=== PATIENT | female | born 1980 | race Caucasian/White ===

== ENCOUNTER → 2020-10-16 | Outpatient (CLI) | payer OTHER ==
[~2020-10-16] MED LIST: ALBIPROI INH; ALBU90OI; ALBU90OI INH; ALBU90OI6 INH; Anaspaz0.125 MG; Colace100 MG; DIPH50 PO; ERGO400 PO; FLUSAL2505 INH; HYDGUAL120 PO; IBUP800; IBUP800 PO; LEVFLO500 PO; MONT10T PO; MULVITMIND PO; Multi-Day Vita1 EACH PO; Omeprazole20 M1 PO; PRED20 PO; PROM25 PO; Percocet 5-3251 EACH PO; Phentermine HCl15 MG PO; Prilosec Otc20 MG; STOOL SOFTENER50 MG PO; VICODIN 5-3001 EACH PO; Veetids 500500 MG PO; Ventolin Soln3 ML INH
== END ==
LOC: LAB SHORT 13:11 → LAB 13:11
DX: N39.0 Urinary tract infection, site not specified (principal)
CPT/HCPCS: 87077; 87086; 87186

== ENCOUNTER → 2023-10-20 | Outpatient (CLI) | payer OTHER ==
[2023-10-20 10:13] LABS: Stool Occult Bld Immuno 1 Negative (NEGATIVE)
[2023-10-22 03:28] LABS: CALPROTECTIN,FECAL 268 ug/g (<=49)
== END ==
LOC: LAB SHORT 08:20 → LAB 08:20
PROVIDERS: Family Medicine
DX: R10.9 Unspecified abdominal pain (principal)
CPT/HCPCS: 83993; 87338; G0328

== ENCOUNTER 2024-01-14 07:50 | Day surgery (SDC) | payer OTHER ==
[~2024-01-14] VITALS: Ht 167.6 cm; Wt 104.0 kg
[~2024-01-14 07:50] MED LIST changes: +Lactated Ringer's 1,000 ML IV ONE; +propofoL 50 ML IV ONE
[2024-01-14] MEDS ORDERED: SYMBICORT 80-10.2 GM (08:31)
[2024-01-14] MEDS ORDERED: Lactated Ringer's 1,000 ML IV ONE (09:01)
[2024-01-14] MEDS ORDERED: propofoL 50 ML IV ONE (09:29)
[2024-01-14 10:39] VITALS: BP 105/63
== END 2024-01-14 10:32 | disposition home or self-care (01) ==
LOC: ORSCSDS 07:50
PROVIDERS: Internal Medicine Gastroenterology
PROC: 0DBE8ZX Excision of Large Intestine, Via Natural or Artificial Opening Endoscopic, Diagnostic (ICD-10-PCS; principal; 2024-01-14 09:00)
PROC: 0DB78ZX Excision of Stomach, Pylorus, Via Natural or Artificial Opening Endoscopic, Diagnostic (ICD-10-PCS; principal; 2024-01-14 09:00)
PROC: 0DB98ZX Excision of Duodenum, Via Natural or Artificial Opening Endoscopic, Diagnostic (ICD-10-PCS; principal; 2024-01-14 09:00)
DX: R19.7 Diarrhea, unspecified (principal); R10.13 Epigastric pain; K21.9 Gastro-esophageal reflux disease without esophagitis; K29.70 Gastritis, unspecified, without bleeding; Z86.010 Personal history of colon polyps; E66.9 Obesity, unspecified; Z68.36 Body mass index [BMI] 36.0-36.9, adult; J45.909 Unspecified asthma, uncomplicated
CPT/HCPCS: 88305; 88342; J2704; J7120